=== PATIENT | male | born 1980 | race African-American/Black ===

== ENCOUNTER 2016-08-12 20:48 | Inpatient (IN) | payer OTHER ==
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
--- NOTE | ~2016-08-12 | DS ---
Unit #: [id number] #: [id number] Patient: DUNCAN BARNETT [id number] [facility] [address] [place] [address] [id number] MR#: [id number] NAME: DUNCAN BARNETT. ROOM: P214 Age: 35 Sex: M Admission Date: 08/12/2016 : 1980 Discharge Date: 08/15/2016 Attending Physician: Shahram Matta M.D. Primary Care Physician: Primary Care Physician No DISCHARGE SUMMARY REASON FOR ADMISSION Duncan is a 35-year-old man who has been using cocaine and cannabis to excess. He developed increasing depression and suicidal ideation, and was unable to contract for safety outside of the hospital. DIAGNOSTIC STUDIES LABORATORY RESULTS: Please see hospital chart. HOSPITAL COURSE The patient was admitted and monitored for detox, although, he showed only [id number] signs of detox and detox protocol was no longer initiated. Trazodone was provided for insomnia and he participated in 12-step based groups and activities. He did not express any further suicidal ideation after admission, and declined the initiation of an antidepressant medication. On the date of discharge, he was able to contract for safety with followup through the intensive outpatient program at this facility. ADMITTING DIAGNOSES AXIS I: Cocaine abuse; alcohol abuse; substance-induced mood disorder; depressed. AXIS II: No diagnosis. AXIS III: None acute. AXIS IV: AXIS V: DISCHARGE INSTRUCTIONS Follow up with the evening CD-IOP at this facility. DISCHARGE MEDICATIONS None. CONDITION AT DISCHARGE Improved. PROGNOSIS Good. DIET AND ACTIVITY Ad randy. Unit #: [id number] #: [id number] Patient: DUNCAN BARNETT Dictated by... Obi Stevens/ehsan TD: 10/02/2016 10:56 JOB #: [id number] DISCHARGE SUMMARY Page 1 of 1 X Shahram Matta MD X DISCHARGE SUMMARY
--- NOTE | ~2016-08-12 | HP ---
Unit #: [id number] #: [id number] Patient: DUNCAN BARNETT [id number] [place] [address] [id number] I MR#: [id number] NAME: DUNCAN BARNETT ROOM: P214 Age: 35 Sex: M Admission Date: 08/12/2016 : 1980 Attending Physician: Shahram Matta M.D. Admitting Physician: Shahram Matta M.D. Primary Care Physician: Primary Care Physician No HISTORY AND PHYSICAL HISTORY OF PRESENT ILLNESS Duncan is a 35 year old admitted to [address] [place] [address] because of his drug use. PAST MEDICAL HISTORY Long history of illicit substance abuse to include cocaine PAST SURGICAL HISTORY Right achilles tendon repair. ALLERGIES No known drug allergies. SOCIAL HISTORY Smokes one pack per day. Drinks alcohol on occasion. Admits to a history of illicit drug use to include cocaine. FAMILY HISTORY Medically noncontributory. REVIEW OF SYSTEMS CONSTITUTIONAL: No fever or chills. HEENT: Denies any sore throat, ear pain or runny nose. CARDIOVASCULAR: Denies chest pain, irregular heart rhythm or palpitations. CHEST: Denies shortness of breath or cough. No hemoptysis. GASTROINTESTINAL: Denies nausea, vomiting, diarrhea or chronic constipation. ENDOCRINE: Denies history of increased thirst or urination. No recent significant weight loss or gain. GENITOURINARY: Denies dysuria, frequency, or hematuria. SKIN: Denies any rashes. HEMATOLOGIC: Denies history of increased bleeding or bruising. MUSCULOSKELETAL: Denies any hot, swollen joints. No generalized muscle pain. NEUROLOGIC: Denies problems with vision or speech. No frequent, severe headaches. No numbness, tingling or weakness in any extremities. Denies loss of bladder or bowel control. CURRENT MEDICATIONS 1. Desyrel p.r.n. 2. Milk of Magnesia p.r.n. 3. Maalox p.r.n. 4. Tylenol p.r.n. Unit #: [id number] #: [id number] Patient: DUNCAN BARNETT 5. Nicotine patch 14 mg q day PHYSICAL EXAMINATION GENERAL: Alert, well-nourished, in no apparent distress. VITAL SIGNS: Blood pressure 114/56, heart rate 52, respirations 16, temperature 98.6. WEIGHT: 202 pounds. HEIGHT: 6'2". SKIN: Warm and dry without rash or lesion. HEENT: Normocephalic. TMs not viewed. Oral and nasal passages clear. Conjunctivae clear. Pupils equal, round and reactive to light and accommodation. Extraocular movements intact. NECK: Supple without lymphadenopathy or thyromegaly. HEART: Regular rate and rhythm without murmur. LUNGS: Clear. ABDOMEN: Soft, nontender. : Not done. EXTREMITIES: No evidence of cyanosis, clubbing or edema. Moves all extremities without focal deficit. NEUROLOGICAL: Grossly within normal limits. Cranial Nerves: II: Visual crow are intact. III, IV AND : Extraocular movements are intact. Pupils are equal, round and reactive to light. V: Facial sensation is grossly normal. VII: Facial movements and expression are normal. VIII: Auditory acuity grossly intact. IX, X: Uvula is midline. Phonation is normal. XI: Patient shrugs shoulders and turns head normally. XII: Tongue protrudes in the midline. Sensory and Motor Function: Sensory and motor sensation is grossly normal. Motor: moves all extremities well. Coordination: Gait is normal. Deep Tendon Reflexes: Intact. IMPRESSION Psychiatric admission RECOMMENDATIONS PSYCHIATRIC: Per psychiatrist. MEDICAL: I see no contraindications to participating in facility's activities. MEDICAL PROGNOSIS Good. MEDICAL CONDITION Stable. Dictated by... Amirah Jansen P.A.-C. for Obi Johnson/nadia TD: 08/14/2016 01:55 JOB #: [id number] Unit #: [id number] #: [id number] Patient: DUNCAN BARNETT HISTORY AND PHYSICAL Page 1 of 1 X Amirah Jansen HISTORY AND PHYSICAL
[~2016-08-12 20:48] MED LIST: IBUPROFEN800 MG PO; VICODIN 5/1 TAB 5/50 PO
[2016-08-13 13:19] LABS: AMPHETAMINE NEG (NEG); BARBITURATES NEG (NEG); BENZODIAZEPINES NEG (NEG); COCAINE POS (NEG); MARIJUANA NEG (NEG); OPIATES NEG (NEG); TRICYCLIC ANTIDEPRESSANTS NEG (NEG); U METHADONE NEG (NEG)
== END 2016-08-15 15:50 | DRG 897 ==
LOC: P2S 20:48
PROVIDERS: Psychiatry & Neurology Psychiatry
DX: F14.20 Cocaine dependence, uncomplicated (principal); F14.24 Cocaine dependence with cocaine-induced mood disorder; F17.210 Nicotine dependence, cigarettes, uncomplicated; Z81.1 Family history of alcohol abuse and dependence; Z81.8 Family history of other mental and behavioral disorders; F10.20 Alcohol dependence, uncomplicated
CPT/HCPCS: 80307